=== PATIENT | female | born 1975 | race Caucasian/White ===

== ENCOUNTER 2022-05-10 13:50 | Emergency (ER) | payer OTHER ==
[2022-05-10] MEDS ORDERED: Sodium Chloride 0.9% 2.5 ML Syringe FLUSH PRN (14:06)
[2022-05-10] MEDS ORDERED: Sodium Chloride 0.9% 10 ML Syringe FLUSH PRN (14:06)
[2022-05-10] MEDS ORDERED: hydrALAZINE 20 MG/ML SDV IVPUSH ONE (14:10)
[2022-05-10 14:46] LABS: CARBON DIOXIDE,CO2 26.5 mmol/L (21.0-32.0); POTASSIUM,K 3.6 mmol/L (3.5-5.1)
[2022-05-10] MEDS ORDERED: Ketorolac 30 MG/ML SDV IVPUSH ONE (15:20)
== END 2022-05-10 16:37 | disposition home or self-care (01) ==
LOC: MW.ED 13:50
DX: R07.89 Other chest pain (principal); I16.0 Hypertensive urgency; H11.31 Conjunctival hemorrhage, right eye; K21.9 Gastro-esophageal reflux disease without esophagitis; Z79.899 Other long term (current) drug therapy
CPT/HCPCS: 36415; 71045; 80053; 84484; 85025; 93005; 96374; 96375; 99285; J0360; J1885; J3490